=== PATIENT | female | born 1960 | race Caucasian/White ===

== ENCOUNTER 2016-11-14 20:52 | Emergency (ER) | payer BC ==
[~2016-11-14] VITALS: Ht 167.6 cm; Wt 80.7 kg
[~2016-11-14 20:52] MED LIST: LOPRESSOR50 MG PO; METAXALONE800 MG PO; MOTRIN600 MG PO; PANTOPRAZOLE SO40 MG PO; PHENTERMINE HCL30 MG PO; TRAMADOL HCL50 MG PO
[2016-11-14 23:57] VITALS: BP 179/89
[2016-11-15 10:08] LABS: HBSG INDEX 0.15; HPCA INDEX 0.23
[2016-11-15 10:09] LABS: ANTI-HEPATITIS A VIRUS (IGM) Nonreactive; ANTI-HEPATITIS B CORE (IGM) Nonreactive; HAV INDEX 0.16; HBC IgM INDEX 0.07
[2016-11-15 10:10] LABS: HIV INDEX 0.12; HIV-1/2 AB/AG COMBO Nonreactive
[2016-11-15 13:50] LABS: TREPONEMA ANTIBODY NEGATIVE (NEGATIVE)
[2016-11-15 15:41] LABS: CHLAMYDIA TRACHOMATIS NEGATIVE; NEISSERIA GONORRHOEAE NEGATIVE
== END 2016-11-14 23:58 | disposition home or self-care (01) ==
LOC: EME 20:52
PROVIDERS: Emergency Medicine
DX: Z04.41 Encounter for examination and observation following alleged adult rape (principal); N93.9 Abnormal uterine and vaginal bleeding, unspecified; N89.8 Other specified noninflammatory disorders of vagina; Z11.3 Encounter for screening for infections with a predominantly sexual mode of transmission; I10 Essential (primary) hypertension
CPT/HCPCS: 80074; 86703; 86705; 86780; 86803; 87210; 87340; 87491; 87591; 99281; 99284; J0696

== ENCOUNTER 2017-07-24 08:06 | Day surgery (SDC) | payer BC ==
[~2017-07-24] VITALS: Ht 167.6 cm; Wt 79.4 kg
[~2017-07-24 08:06] MED LIST changes: +BIOTIN1000 MICRO PO; +COLLAGEN PLUS1 EACH PO; +EVENING PRIMR1000 MG PO; +GINSENG100 MG PO; +LO-DOSE ASPIRIN81 M1 PO; +OMEGA 3 500 SO1 EACH PO; +PROTONIX40 MG PO; +TOPAMAX25 MG PO; +TYLENOL REGULA325 MG PO; +VISION FORMULA1 EAC1 PO; +VITAMIN E200 UNI2 PO
[2017-07-24 08:39] VITALS: BP 174/85
[2017-07-24 12:15] VITALS: BP 148/75
[2017-07-24 12:55] VITALS: BP 140/70
== END 2017-07-24 13:07 | disposition home or self-care (01) ==
LOC: SDC 08:06
PROC: 0UBC8ZX Excision of Cervix, Via Natural or Artificial Opening Endoscopic, Diagnostic (ICD-10-PCS; principal; 2017-07-24)
DX: D06.0 Carcinoma in situ of endocervix (principal); N93.0 Postcoital and contact bleeding; E03.9 Hypothyroidism, unspecified; K21.9 Gastro-esophageal reflux disease without esophagitis; Z88.2 Allergy status to sulfonamides; E05.00 Thyrotoxicosis with diffuse goiter without thyrotoxic crisis or storm; F41.8 Other specified anxiety disorders; Z79.82 Long term (current) use of aspirin
CPT/HCPCS: 88305; 88307; 88342 TC; J0690; J1100; J1170; J1885; J2405; J2765; J3010; S0020

== ENCOUNTER 2017-10-30 05:48 | Emergency (ER) | payer BC ==
[~2017-10-30] VITALS: Ht 167.6 cm; Wt 86.3 kg
[2017-10-30 06:17] LABS: HEMATOCRIT 41.2 % (36.0-46.0); HEMOGLOBIN 14.1 G/DL (11.9-15.5); MCH 29.8 PG (29.0-34.0); MCHC 34.2 G/DL (30.0-36.0); MCV 87.1 FL (83-99); PLATELET COUNT 181 K/uL (156-360); RBC DIS.WIDTH-CV 12.4 % (11.8-14.6); RBC DIS.WIDTH-SD 39.8 % (39-53); RED BLOOD COUNT 4.73 M/uL (3.80-5.20); WHITE BLOOD COUNT 6.4 K/uL (4.1-10.2)
[2017-10-30 06:27] LABS: ALBUMIN 4.2 g/dL (3.2-4.8); CHLORIDE 107 mEq/L (99-109); POTASSIUM 3.6 mEq/L (3.7-5.4); SODIUM 140 mEq/L (136-147)
[2017-10-30 06:30] LABS: GLUCOSE 111 mg/dL (70-99); TOTAL PROTEIN 7.2 g/dL (6.4-8.3)
[2017-10-30 06:32] LABS: TOTAL BILIRUBIN 0.5 mg/dL (0.0-1.0)
[2017-10-30 06:33] LABS: ALKALINE PHOSPHATASE 69 IU/L (3-129)
[2017-10-30 06:34] LABS: CREATININE 0.9 mg/dL (0.6-1.3); GFR ESTIMATE (CALCULATED) > 59 mL/min/
[2017-10-30 06:35] LABS: AST (GOT) 20 IU/L (2-34); UREA NITROGEN (BUN) 26 mg/dL (9-23)
[2017-10-30 06:36] LABS: ALT (GPT) 14 IU/L (3-49)
[2017-10-30 06:42] LABS: TROP-I INTERPRETATION NEGATIVE; TROPONIN-I < 0.01 ng/mL (0.0-0.30)
[2017-10-30 07:19] LABS: LIPASE 21 U/L (1.0-51.0)
[2017-10-30] MEDS ORDERED: ANTIVERT25 MG PO (07:45)
[2017-10-30 07:54] VITALS: BP 151/88
== END 2017-10-30 07:58 | disposition home or self-care (01) ==
LOC: EME → EDBD 05:48 → EME 07:58
PROVIDERS: Emergency Medicine
DX: R42 Dizziness and giddiness (principal); E05.00 Thyrotoxicosis with diffuse goiter without thyrotoxic crisis or storm; G25.81 Restless legs syndrome; G89.29 Other chronic pain; K50.90 Crohn's disease, unspecified, without complications; F41.9 Anxiety disorder, unspecified; F32.9 Major depressive disorder, single episode, unspecified; G43.909 Migraine, unspecified, not intractable, without status migrainosus; F17.200 Nicotine dependence, unspecified, uncomplicated; Z79.82 Long term (current) use of aspirin; Z88.2 Allergy status to sulfonamides
CPT/HCPCS: 70450; 80053; 81003; 83690; 84484; 85027; 93005; 99281; 99284